=== PATIENT | male | born 1975 ===

== ENCOUNTER 2025-07-14 19:47 | Emergency (ER) | payer MEDICAID ==
[~2025-07-14] VITALS: Ht 170.2 cm; Wt 75.0 kg
[2025-07-14 19:55] VITALS: BP 145/72; PULSE 80; O2SAT 100
[2025-07-14] MEDS: BACITRACIN 0.9 GM PACKET OINTMENT TP ONE (20:25)
[2025-07-14 21:37] VITALS: RESP 16
== END 2025-07-14 21:47 | disposition left against medical advice (07) ==
LOC: EMS 19:47
DX: S00.81XA Abrasion of other part of head, initial encounter (principal); F17.210 Nicotine dependence, cigarettes, uncomplicated; Z65.3 Problems related to other legal circumstances; Z78.1 Physical restraint status; W22.01XA Walked into wall, initial encounter; Y93.89 Activity, other specified; Y92.89 Other specified places as the place of occurrence of the external cause; Y99.8 Other external cause status
CPT/HCPCS: 99283